=== PATIENT | female | born 1990 | race Hispanic/Latino ===

== ENCOUNTER 2017-07-26 13:39 | Observation (INO) | payer MEDICAID ==
[~2017-07-26] VITALS: Ht 160 cm; Wt 68.9 kg
[2017-07-26 14:45] LABS: APPEARANCE,URINE Clear (CLEAR); BILIRUBIN,URINE Negative (NEGATIVE); COLOR,URINE Yellow (YELLOW); GLUCOSE, URINE (UA) Negative (NEGATIVE); KETONES,URINE Negative (NEGATIVE); LEUKOCYTE ESTERASE ,URINE Trace (NEGATIVE); NITRATE,URINE Negative (NEGATIVE); OCCULT BLOOD,URINE Negative (NEGATIVE); PROTEIN,URINE Negative (NEGATIVE); UROBILINOGEN,URINE 0.2 mg/dL (0.2-1.0)
[2017-07-26 14:58] LABS: BACTERIA,URINE Rare /HPF (None Seen); RBC,URINE None Seen /HPF (0-1); SQUAMOUS EPITHELIAL CELL,UR 0-2 /HPF (0-2); WBC,URINE 0-1 /HPF (0-1)
[2017-07-26] MEDS ORDERED: LACTATED RINGERS 1000ML 1,000 ML IV ONE (15:14)
[2017-07-26] MEDS ORDERED: LACTATED RINGERS 1000ML 1,000 ML IV SCH (15:15)
[2017-07-26 17:07] VITALS: BP 120/74
== END 2017-07-26 17:06 | disposition home or self-care (01) ==
LOC: EDH 13:39 → LDH 13:40
PROVIDERS: ADMIT Obstetrics & Gynecology; ATTEND Obstetrics & Gynecology
DX: O26.893 Other specified pregnancy related conditions, third trimester (principal); R19.7 Diarrhea, unspecified; Z3A.32 32 weeks gestation of pregnancy
CPT/HCPCS: 81001; 99285; G0378 ×3; J7120; 96360; 96361

== ENCOUNTER 2017-09-13 18:48 | Inpatient (IN) | payer MEDICAID ==
[2017-09-13 21:07] LABS: APPEARANCE,URINE Clear (CLEAR); BILIRUBIN,URINE Negative (NEGATIVE); COLOR,URINE Yellow (YELLOW); GLUCOSE, URINE (UA) Negative (NEGATIVE); KETONES,URINE Negative (NEGATIVE); LEUKOCYTE ESTERASE ,URINE Negative (NEGATIVE); NITRATE,URINE Negative (NEGATIVE); OCCULT BLOOD,URINE Negative (NEGATIVE); PROTEIN,URINE Negative (NEGATIVE); UROBILINOGEN,URINE 0.2 mg/dL (0.2-1.0)
[2017-09-13] MEDS: LACTATED RINGERS 1000ML 1,000 ML IV PRN (22:34)
[2017-09-13 22:46] LABS: HEMATOCRIT 34.2 % (36-48); MEAN CORPUSCULAR HEMOGLOBIN 33.9 pg (27.0-33.0); MEAN CORPUSCULAR HGB CONC 34.9 g/dL (32.0-36.0); MEAN CORPUSCULAR VOLUME 97.2 fL (79-99); PLATELET COUNT (AUTO) 201 K/uL (130-400); RED BLOOD CELL COUNT(AUTO) 3.52 MIL/uL (4.00-5.50)
[2017-09-14] MEDS ORDERED: LACTATED RINGERS 1000ML 1,000 ML IV ONE ×2 (02:40→11:04)
[2017-09-14] MEDS ORDERED: OXYTOCIN 10 USP UNITS/ML ONE ×2 (02:41→11:04)
[2017-09-14] MEDS ORDERED: OXYTOCIN 10 USP UNITS/ML 20 UNIT in LACTATED RINGERS 1000ML 1,000 ML IV SCH (03:00)
[2017-09-14] MEDS: LACTATED RINGERS 1000ML 1,000 ML IV PRN (05:38)
[2017-09-14] MEDS ORDERED: PROMETHAZINE HCL 25 MG/ML 1ML AMPULE IM PRN (06:30)
[2017-09-14] MEDS ORDERED: MEPERIDINE-PF 50 MG/ML SYG IVP PRN (06:30)
[2017-09-14] MEDS ORDERED: EPHEDRINE SULFATE 50 MG/ML AMPULE IVP PRN (08:15)
[2017-09-14] MEDS ORDERED: NALOXONE HCL 0.4 MG/1 ML ML IV PRN (08:15)
[2017-09-14] MEDS ORDERED: LACTATED RINGERS 500 ML 500 ML IV PRN (08:15)
[2017-09-14] MEDS ORDERED: OXYTOCIN-LR 20 UNITS/1000 ML 1,000 ML IV SCH (10:30)
[2017-09-14] MEDS ORDERED: DIPH,PERTUSS(ACELL),TET VAC/PF 0.5 ML VIAL IM PRN (10:30)
[2017-09-14] MEDS ORDERED: BENZOCAINE/LANOLIN/ALOE VERA 60 ML AEROSOL TP PRN (10:30)
[2017-09-14] MEDS ORDERED: LANOLIN 30GM OINTMENT TP PRN (10:30)
[2017-09-14] MEDS ORDERED: MEASLES/MUMPS/RUBELLA VACCINE, LIVE 0.5 ML/VIAL SQ PRN (10:30)
[2017-09-14] MEDS ORDERED: WITCH HAZEL 1 PAD TP PRN (10:30)
[2017-09-14 12:13] VITALS: BP 138/78
[2017-09-14 15:59] VITALS: BP 121/71
[2017-09-14] MEDS: IBUPROFEN 600 MG TABLET PO PRN (16:21)
[2017-09-14 20:49] VITALS: BP 111/61
[2017-09-14] MEDS: DOCUSATE SODIUM 100 MG CAP PO SCH (21:15)
[2017-09-15 00:20] VITALS: BP 100/53
[2017-09-15] MEDS: IBUPROFEN 600 MG TABLET PO PRN ×2 (02:35→09:03)
[2017-09-15 04:00] VITALS: BP 94/68
[2017-09-15 05:46] LABS: HEMATOCRIT 31.7 % (36-48); MEAN CORPUSCULAR HEMOGLOBIN 33.6 pg (27.0-33.0); MEAN CORPUSCULAR HGB CONC 34.4 g/dL (32.0-36.0); MEAN CORPUSCULAR VOLUME 97.8 fL (79-99); PLATELET COUNT (AUTO) 193 K/uL (130-400); RED BLOOD CELL COUNT(AUTO) 3.24 MIL/uL (4.00-5.50); RED CELL DISTRIBUTION WIDTH 13.9 % (11.0-15.5); WHITE BLOOD COUNT (AUTO) 12.9 K/uL (4.8-10.8)
[2017-09-15 07:43] VITALS: BP 107/63
[2017-09-15 08:21] LABS: HEPATITIS Bs ANTIGEN SCREEN P Negative (Negative)
[2017-09-15] MEDS: DOCUSATE SODIUM 100 MG CAP PO SCH (09:02)
[2017-09-15 11:35] VITALS: BP 118/80
== END 2017-09-15 13:05 | disposition home or self-care (01) | DRG 560 ==
LOC: WSH 18:48 → LDH 09-14 04:45 → WSH 09-14 12:08
PROVIDERS: ADMIT Obstetrics & Gynecology; ATTEND Obstetrics & Gynecology
PROC: 10E0XZZ Delivery of Products of Conception, External Approach (ICD-10-PCS; principal; 2017-09-14)
PROC: 3E0R3BZ Introduction of Anesthetic Agent into Spinal Canal, Percutaneous Approach (ICD-10-PCS; 2017-09-14)
PROC: 00HU33Z Insertion of Infusion Device into Spinal Canal, Percutaneous Approach (ICD-10-PCS; 2017-09-14)
PROC: 3E0234Z Introduction of Serum, Toxoid and Vaccine into Muscle, Percutaneous Approach (ICD-10-PCS; 2017-09-14)
PROC: 3E0134Z Introduction of Serum, Toxoid and Vaccine into Subcutaneous Tissue, Percutaneous Approach (ICD-10-PCS; 2017-09-14)
DX: O80 Encounter for full-term uncomplicated delivery (principal); Z23 Encounter for immunization; Z37.0 Single live birth; Z3A.39 39 weeks gestation of pregnancy
CPT/HCPCS: 36415; 76805; 81003; 85027; 86592; 86850; 86900; 86901; 87340; 90715; A4314; J2175; J2550; J2590; J7120